=== PATIENT | male | born 2005 | race Caucasian/White ===

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

== ENCOUNTER 2023-02-13 16:06 | Emergency (ER) | payer BC, MEDICAID, SELFPAY ==
[2023-02-13 16:07] VITALS: BP 134/82; PULSE 71; RESP 18; TEMP 37.4; O2SAT 100; BMI 27.9
--- NOTE | 2023-02-13 16:51 | EX.ED.DYSGE1 ---
HPI History of Present Illness Chief Complaint: General Illness Detail of Chief Complaint: Syncope using inhaler and increased wheezing Informant: patient Onset/Context/Timing Onset: Today Context: Sudden Onset Timing: Intermittent Quality: Upper respiratory tract infectious symptoms with exacerbation of asthma Location: Upper respiratory Current Severity: Gone Worsened by: URI and use of inhaler Relieved by: Not applicable Associated Symptoms Associated Symptoms: Nasal congestion, sore throat, cough near syncope Narrative Narrative: Patient is a 17-year-old with history of asthma. He presents with upper respiratory symptoms that started today. He has been using his inhaler more frequently. He had 1 episode where he held his breath he got lightheaded, this scared him. He was brought to the emergency room. He denies fever, chills night sweats. He does report nasal congestion and sore throat. He denies auditory symptoms. He denies any respiratory symptoms at this time. He states when he was holding his breath between use of his inhaler he became light headed. He has no other symptoms. Person that is with him states he has a heart condition and is not supposed to drink caffeinated beverages, which she does. He also is a smoker. Prior similar symptoms: Yes Recent Illness/Hospitalization: No PFSH PFS Medical History Encounter for screening for COVID-19 Seasonal allergies Home Medications Cetirizine Hcl [Zyrtec] 10 mg PO DAILY PRN Allergies 12/01/13 [History Last Taken Unknown] albuterol sulfate 90 mcg/actuation aerosol inhaler (Ventolin HFA) 1 puff inhalation Q6H PRN PRN Wheezing 05/11/16 [History Last Taken Unknown] benzonatate 100 mg capsule 200 mg (2 x 100 mg) PO TID PRN cough #30 caps 06/13/22 [Rx Last Taken Unknown] amoxicillin 500 mg tablet 500 mg PO TID #30 tabs 10/06/22 [Rx Last Taken Unknown] Allergy/AdvReac Type Severity Reaction Status Date / Time shellfish derived Allergy Angioedema Verified 02/13/23 16:07 Family History Other Asthma Diabetes Heart disease Social History (Updated 02/13/23 @ 16:[address] Marshall Grande MD) household members: family Smoking Status: Current every day smoker substance use type: does not use ROS ROS ED Constitutional Constitutional ED: Denies chills, fever(s), subjective, sweats or weight loss Eyes Eyes: Denies blurry vision, change in vision or diplopia ENT ENT ED: Reports rhinorrhea and sore throat; Denies ear pain Cardiovascular Cardiovascular: Denies chest pain, orthopnea, palpitations, paroxysmal nocturnal dyspnea or racing heartbeat Respiratory/Chest Respiratory/Chest: Reports cough, dyspnea and sputum; Denies dyspnea on exertion, orthopnea or paroxysmal nocturnal dyspnea Gastrointestinal Gastrointestinal: Denies abdominal pain, nausea or vomiting Musculoskeletal Musculoskeletal: Denies arthralgias, back pain, myalgias or neck pain Integumentary Denies rash Neurologic Neurologic: Denies headache(s) Allergic/Immunologic Allergic/Immunologic ED: Denies mouth swelling, tongue swelling or urticaria EXAM Physical Exam Const Vital Signs: 02/13/23 16:07 Temperature 99.4 F H Temperature Source Temporal Pulse Rate 71 Respiratory Rate 18 Blood Pressure 134/82 H Blood Pressure Mean 99 Pulse Ox 100 Oxygen Delivery Method Room Air Positive well nourished and well developed General Appearance ED: well developed and NAD; Negative for cyanotic, diaphoretic or pallor HEENT Reports moist mucous membranes HEENT Narrative: Ears are normal. TMs are normal. Nares mild congestion with clear drainage. Posterior pharynx erythema or exudate. Uvula is midline. Eyes PERRL and EOMs intact bilaterally General Eye ED: Negative for pale conjunctiva or scleral icterus Neck no lymphadenopathy, supple and no JVD Chest Wall inspection of chest normal and palpation of chest normal Resp normal respiratory effort and clear to auscultation bilaterally Cardio regular rate, regular rhythm, S1 normal heart sound, S2 normal heart sound and no murmurs Extremity normal to inspection General Extremety ED: Negative for edema or tenderness General Extremity: Negative for edema Neuro oriented x3, CN's II-XII intact bilaterally and no sensory deficits noted Sensorium / Orientation: alert Psych mental status grossly normal Skin no rashes or lesions noted, no wounds and skin turgor normal General Skin Exam: elasticity normal; Negative for jaundice or pallor MDM MDM MDM Narrative Medical decision making narrative: Has exacerbation was Kevin month due to upper respiratory tract infection. The lightheadedness occurred with Valsalva maneuver and suspect he had a near syncope due to vasovagal episode. Patient was told he should stop smoking. And if he has a heart condition that he is Nachlas drink caffeinated beverages he should not drink caffeinated beverages Monitor reveals a sinus rhythm rate of 68 with no ectopy. No testing is wired History & Record Review Additional record(s) reviewed:: Prior outpatient record (Patient was seen when he was much younger at outside facility and seen by manager generation.) Discharge Plan Triage Chief Complaint: General Illness ED Provider: Marshall Grande Dx/Rx/DC Orders Clinical Impression: Asthma exacerbation, Respiratory tract infection, Vasovagal near syncope Instructions: ED Near-Fainting- Vagal Reaction, ED URI, Viral w/ Wheezing (Child) Prescriptions: No Action benzonatate 100 mg capsule 200 mg PO TID PRN (Reason: cough) Qty: 30 0RF Cetirizine Hcl [Zyrtec] 10 MG tablet 10 mg PO DAILY PRN (Reason: Allergies) albuterol sulfate [Ventolin HFA] 1 INHALER inhaler 1 puff inhalation Q6H PRN PRN (Reason: Wheezing) amoxicillin 500 mg tablet 500 mg PO TID Qty: 30 0RF Primary Care Provider: Care Physician,No Primary Referrals: Care Physician,No Primary [Primary Care Provider] - Doctor,Your [Non-Staff] - 10-14 Days if not better Disposition Disposition: Home, Self Care
== END 2023-02-13 17:07 | disposition home or self-care (01) ==
PROVIDERS: Emergency Provider Emergency Medicine; Visit Provider Emergency Medicine
DX: J45.901 Unspecified asthma with (acute) exacerbation (principal); J98.8 Other specified respiratory disorders; R55 Syncope and collapse; F17.200 Nicotine dependence, unspecified, uncomplicated
CPT/HCPCS: 99282

== ENCOUNTER 2023-09-07 05:51 | Emergency (ER) | payer MEDICAID, SELFPAY ==
[2023-09-07 05:52] VITALS: BP 148/88; PULSE 83; RESP 16; TEMP 36.2; O2SAT 99; BMI 29.3
--- NOTE | 2023-09-07 06:03 | RAD_ITS ---
INDICATION: COUGH EXAMINATION/TECHNIQUE: X-RAY - XR Chest 2 Views COMPARISON: 04/18/2021 FINDINGS: LINES/DEVICES: None. LUNGS: No consolidation. No pneumothorax. MEDIASTINUM: Unremarkable. CARDIAC SILHOUETTE: Not enlarged. BONES AND SOFT TISSUES: No acute abnormalities. RAD/Chest PA and Lateral IMPRESSION: No evidence of active intrathoracic disease. Electronically Signed: Yesi Perry MD at 6:32 EDT ,
--- NOTE | 2023-09-07 06:04 | ED.VIS.DYS ---
HPI History of Present Illness Chief Complaint: Cold Sx Detail of Chief Complaint: Cough and shortness of breath Informant: patient Narrative Narrative: Patient presents with cough and congestion for about 4 days. States he had fever over 100 over the first 2 days of his illness. Patient bringing up some yellow phlegm. This morning he felt somewhat short of breath. Complains of some bodyaches and had some mild sore throat. Patient states he had a cousin that was diagnosed with a bacterial infection recently. Patient has history of asthma. [facility] Medical History Encounter for screening for COVID-19 Seasonal allergies Home Medications ?Medication ?Instructions ?Recorded ?Last Taken ?Type albuterol sulfate 90 mcg/actuation 1 puff inhalation Q6H PRN PRN 07/03/23 Unknown Rx aerosol inhaler (Ventolin HFA) Wheezing #8.5 grams nystatin 100,000 unit/gram topical 1 applic topical BID #30 grams 09/07/23 Unknown Rx cream Allergy/AdvReac Type Severity Reaction Status Date / Time shellfish derived Allergy Angioedema Verified 09/07/23 05:55 Family History Other Asthma Diabetes Heart disease Social History household members: family Smoking Status: Current every day smoker tobacco type: cigarettes substance use type: does not use ROS ROS ED Review of Systems ROS Unobtainable: other Constitutional Constitutional ED: Reports fever(s) and lethargy; Denies chills, sweats or weight loss Eyes Eyes: Denies blurry vision, change in vision or diplopia ENT ENT ED: Reports sore throat; Denies rhinorrhea Cardiovascular Cardiovascular: Denies chest pain, orthopnea or racing heartbeat Respiratory/Chest Respiratory/Chest: Reports cough, dyspnea and sputum; Denies dyspnea on exertion or orthopnea Gastrointestinal Gastrointestinal: Denies abdominal pain, diarrhea, nausea or vomiting Genitourinary Genitourinary ED: Denies dysuria, hematuria or urinary frequency Musculoskeletal Musculoskeletal: Denies arthralgias, back pain, myalgias or neck pain Integumentary Denies abscess, Abrasions or rash Neurologic Neurologic: Denies headache(s) or weakness Psychiatric Psychiatric: Denies anxiety, depression or suicidal thoughts Endocrine Endocrinology: Denies polydipsia, polyphagia or polyuria Hematologic/Lymphatic Hematologic/Lymphatic: Denies easy bleeding, easy bruising or lymphadenopathy Allergic/Immunologic Allergic/Immunologic ED: Denies mouth swelling, tongue swelling or urticaria EXAM Physical Exam Const Vital Signs: 09/07/23 05:52 Temperature 97.2 F L Temperature Source Temporal Pulse Rate 83 Respiratory Rate 16 Blood Pressure 148/88 H Blood Pressure Mean 108 Pulse Ox 99 Oxygen Delivery Method Room Air Positive well nourished and well developed General Appearance ED: well developed and NAD HEENT Reports TM's clear and moist mucous membranes normocephalic and atraumatic; Negative for trauma or tenderness Tympanic Membrane ED: Yes TM's clear Eyes PERRL and EOMs intact bilaterally General Eye ED: Negative for pale conjunctiva or scleral icterus Neck no lymphadenopathy, supple and no JVD General: Negative for tenderness Chest Wall inspection of chest normal and palpation of chest normal Chest: Negative for tenderness Resp normal respiratory effort and clear to auscultation bilaterally Effort and Inspection: Negative for respiratory distress or pain with movement Auscultation: Negative for rhonchi, wheezes or diminished lung sounds Cardio regular rate, regular rhythm, S1 normal heart sound, S2 normal heart sound and no murmurs Peripheral Pulses: pulses 2+ throughout GI normal to inspection, nondistended, normoactive bowel sounds, soft to palpation, non-tender, non-distended and no masses Back/Spine no CVA tenderness and no thoracic nor lumbar tenderness Extremity normal to inspection General Extremety ED: Negative for edema General Extremity: Negative for edema Neuro oriented x3, CN's II-XII intact bilaterally, no sensory deficits noted and gait normal Sensorium / Orientation: awake, alert, oriented to person, oriented to place and oriented to time Motor Exam: strength 5/5 throughout and strength abnormal Psych mental status grossly normal Skin no rashes or lesions noted and no wounds MDM MDM MDM Narrative Medical decision making narrative: Cough and bodyaches and sore throat. Low-grade fever. Differential reviewed viral URI versus pneumonia. Clinically he looks well. Chest x-ray obtained was unremarkable. He had testing for COVID flu and RSV that was negative. This point suspect likely viral URI. As I was doing the exit interview he mentions that he also wants to have his rash on his neck that has had for a year looked at. This is consistent with tinea corporis. I will write him a prescription for nystatin. Patient will be referred to primary care physician for follow-up. Radiography Diagnostic Testing: Clinical Impression(s) from Imaging Studies Chest X-Ray 09/07/23 06:03 IMPRESSION: No evidence of active intrathoracic disease. Electronically Signed: Yesi Perry MD at 6:32 EDT Reading Location ID and State: [facility] / [place] Tel , Service support , Discharge Plan Triage Chief Complaint: Cold Sx ED Provider: Sabino Tolentino Dx/Rx/DC Orders Clinical Impression: Viral URI, Tinea corporis Instructions: ED Fungal Skin Infection (Tinea), ED URI, Viral, No Abx (Adult) Prescriptions: New nystatin 100,000 unit/gram cream 1 applic topical BID Qty: 30 0RF No Action albuterol sulfate [Ventolin HFA] 90 mcg/actuation HFA aerosol inhaler 1 puff inhalation Q6H PRN PRN (Reason: Wheezing) Qty: 8.5 0RF Primary Care Provider: Care Physician,No Primary Referrals: Jv Ochoa MD [Med Staff - Neon Sign Mechanic] - 5-7 Days Care Physician,No Primary [Primary Care Provider] - Print Language: Pashto Disposition Disposition: Home, Self Care
[2023-09-07 07:10] VITALS: BP 107/69; PULSE 62; RESP 16; TEMP 36.2; O2SAT 98
== END 2023-09-07 07:11 | disposition home or self-care (01) ==
PROVIDERS: Emergency Provider Emergency Medicine; Visit Provider Emergency Medicine
DX: J06.9 Acute upper respiratory infection, unspecified (principal); B35.4 Tinea corporis; F17.210 Nicotine dependence, cigarettes, uncomplicated; Z79.51 Long term (current) use of inhaled steroids
CPT/HCPCS: 71046; 87631; 99282